=== PATIENT | female | born 1975 | race Caucasian/White ===

== ENCOUNTER 2020-09-06 09:27 | Outpatient (REF) | payer BC, SELFPAY ==
[2020-09-06 13:54] LABS: Hemoglobin A1C 5.6 % (<5.7)
== END 2020-09-06 09:28 | disposition home or self-care (01) ==
LOC: NCHCN 09:27
PROVIDERS: Visit Provider Registered Nurse
DX: Z13.1 Encounter for screening for diabetes mellitus (principal); Z83.3 Family history of diabetes mellitus
CPT/HCPCS: 80335; 83036

== ENCOUNTER 2022-06-07 15:56 | Outpatient (REF) | payer BC, SELFPAY ==
[2022-06-07 21:03] LABS: Hemoglobin A1C 5.6 % (<5.7)
[2022-06-07 21:09] LABS: Anion Gap 6.9 mmol/L (3-11); BUN 10 mg/dL (7-18); CO2 28.1 mmol/L (21.0-32.0); Calcium 8.8 mg/dL (8.5-10.1); Calculated LDL 98 mg/dL (<100); Chloride 106 mmol/L (98-107); Cholesterol 181 mg/dL (<200); Estimated GFR 70.36 (mL/min/1.73m2); Glucose 85 mg/dL (74-106); HDL Cholesterol 46 mg/dL (40-60); Potassium 3.9 mmol/L (3.5-5.1); Sodium 141 mmol/L (136-145); Triglyceride 185 mg/dL (<150)
== END 2022-06-07 15:57 | disposition home or self-care (01) ==
LOC: NCHCN 15:56
PROVIDERS: Visit Provider Registered Nurse
DX: Z00.00 Encounter for general adult medical examination without abnormal findings (principal); Z13.1 Encounter for screening for diabetes mellitus; Z83.3 Family history of diabetes mellitus; Z13.228 Encounter for screening for other metabolic disorders; Z13.220 Encounter for screening for lipoid disorders
CPT/HCPCS: 80048; 80061; 83036

== ENCOUNTER 2022-06-27 15:33 | Outpatient (REF) | payer BC, SELFPAY ==
--- NOTE | 2022-06-27 15:00 | PAPFT_PTH ---
PAT[facility]: Med [id number] AGE/SX: 46/F ROOM: RE06/27/[address]: Joy Montoya : 1975 BED: DIS: 06/27/2022 SPEC #: [id number] RECD: 06/28/22 12:55 STATUS: MEHREEN REMaryann #: [id number] JEROMY: 06/27/22 15:[address]: Joy Montoya DEPT: [facility] Cytology RECD BY: Mei James Tissues: 1 - CX/ENDOCX FOR PAP SMEARS Procedures: PAP THIN PREP/[facility] Screening HPV DNA PROBE Comments: [id number]
== END 2022-06-27 15:34 | disposition home or self-care (01) ==
LOC: NCHCN 15:33
PROVIDERS: Visit Provider Registered Nurse
DX: Z12.4 Encounter for screening for malignant neoplasm of cervix (principal); Z11.51 Encounter for screening for human papillomavirus (HPV)
CPT/HCPCS: 88142; 87624